=== PATIENT | male | born 1995 | race Caucasian/White ===

== ENCOUNTER 2021-01-25 23:17 | Emergency (ER) | payer MEDICAID ==
[~2021-01-25] VITALS: Ht 172.7 cm; Wt 72.7 kg
[~2021-01-25 23:17] MED LIST: AMOXICILLIN 50500 MG PO; CLEOCIN HC150 MG/CAP PO; NORCO 325 MG-51 TAB PO; PHENERGAN 25 TA25 MG PO
[2021-01-25 23:20] VITALS: BP 167/98; TEMP 98.4
[2021-01-26] MEDS ORDERED: AMOXICILLIN 50500 MG PO (00:10)
[2021-01-26] MEDS ORDERED: NORCO 325 MG-51 TAB PO (00:10)
[2021-01-26 00:20] VITALS: PULSE 96
== END 2021-01-26 00:20 | disposition home or self-care (01) ==
LOC: COL.ER 23:17
DX: K02.9 Dental caries, unspecified (principal)

== ENCOUNTER 2022-05-27 12:02 | Emergency (ER) | payer SELFPAY ==
[~2022-05-27] VITALS: Ht 172.7 cm; Wt 77.3 kg
[2022-05-27 12:22] VITALS: TEMP 98.4
[2022-05-27] MEDS ORDERED: NORCO 325 MG-51 TAB PO (12:36)
[2022-05-27] MEDS ORDERED: PEN-VEE K500 MG PO (12:36)
[2022-05-27 13:06] VITALS: BP 127/77; PULSE 80
== END 2022-05-27 13:09 | disposition home or self-care (01) ==
LOC: COL.ER 12:02
DX: K02.9 Dental caries, unspecified (principal); Z28.310 Unvaccinated for COVID-19

== ENCOUNTER 2022-08-08 06:13 | Emergency (ER) | payer MEDICARE ==
[~2022-08-08] VITALS: Ht 172.7 cm; Wt 78.2 kg
[~2022-08-08 06:13] MED LIST changes: +CLEOCIN HCL300 MG PO; +PEN-VEE K500 MG PO
[2022-08-08 06:21] VITALS: TEMP 98.1
[2022-08-08 07:37] VITALS: BP 130/76; PULSE 90
== END 2022-08-08 07:37 | disposition home or self-care (01) ==
LOC: COL.ER 06:13
DX: S06.0X0A Concussion without loss of consciousness, initial encounter (principal); S05.42XA Penetrating wound of orbit with or without foreign body, left eye, initial encounter; Z87.891 Personal history of nicotine dependence; Z28.310 Unvaccinated for COVID-19; Y04.0XXA Assault by unarmed brawl or fight, initial encounter

== ENCOUNTER 2023-06-06 21:45 | Emergency (ER) | payer MEDICARE ==
[~2023-06-06] VITALS: Ht 172.7 cm; Wt 77.3 kg
[~2023-06-06 21:45] MED LIST changes: +AMOXICILLIN 8751 TAB PO
[2023-06-06 21:48] VITALS: BP 116/74; TEMP 98.1
[2023-06-06 23:18] VITALS: PULSE 92
== END 2023-06-06 23:19 | disposition home or self-care (01) ==
LOC: COL.ER 21:45
DX: Z11.52 Encounter for screening for COVID-19 (principal); Z87.891 Personal history of nicotine dependence

== ENCOUNTER 2024-01-07 14:48 | Emergency (ER) | payer MEDICARE ==
[~2024-01-07] VITALS: Ht 172.7 cm; Wt 72.7 kg
[2024-01-07 14:59] VITALS: BP 120/83; TEMP 97.7
[2024-01-07] MEDS ORDERED: predniSONE 10 MG TAB PO ONE (16:00)
[2024-01-07] MEDS ORDERED: PREDNISONE50 MG PO (16:04)
[2024-01-07] MEDS ORDERED: NORCO 325 MG-51 TAB PO (16:04)
[2024-01-07 16:15] VITALS: PULSE 89
== END 2024-01-07 16:15 | disposition home or self-care (01) ==
LOC: COL.ER 14:48
DX: M21.331 Wrist drop, right wrist (principal); F17.200 Nicotine dependence, unspecified, uncomplicated
CPT/HCPCS: J7512